=== PATIENT | female | born 1980 | race Caucasian/White ===

== ENCOUNTER 2019-07-14 14:50 | Emergency (ER) | payer OTHER ==
[2019-07-14 15:35] LABS: HCG,QUAL RESULT NEGATIVE (NEGATIVE)
[2019-07-14 15:38] LABS: BILIRUBIN,URINE Negative (NEGATIVE); COLOR,URINE Yellow (YELLOW); GLUCOSE, URINE (UA) Negative (NEGATIVE); KETONES,URINE Negative (NEGATIVE); LEUKOCYTE ESTERASE ,URINE Moderate (NEGATIVE); NITRATE,URINE Negative (NEGATIVE); OCCULT BLOOD,URINE Negative (NEGATIVE); PH,URINE 5.5 (5.0-8.0); PROTEIN,URINE Negative (NEGATIVE); UROBILINOGEN,URINE 0.2 mg/dL (0.2-1.0)
[2019-07-14 15:42] LABS: APPEARANCE,URINE SLIGHTLY CLOUDY (CLEAR)
[2019-07-14 15:47] LABS: BACTERIA,URINE Few /HPF (None Seen); RBC,URINE None Seen /HPF (0-1)
[2019-07-14 15:48] LABS: MUCUS,URINE Many LPF (None Seen)
[2019-07-14 16:03] LABS: RAPID GROUP A STREP NEGATIVE (NEGATIVE)
== END 2019-07-14 16:28 | disposition home or self-care (01) ==
LOC: EDH 14:50
DX: N39.0 Urinary tract infection, site not specified (principal); F90.9 Attention-deficit hyperactivity disorder, unspecified type; Z88.1 Allergy status to other antibiotic agents; Z88.6 Allergy status to analgesic agent; Z98.51 Tubal ligation status; Z72.0 Tobacco use
CPT/HCPCS: 81001; 81025; 87804; 87880